=== PATIENT | female | born 1965 | race Caucasian/White ===

== ENCOUNTER 2017-01-22 17:28 | Emergency (ER) | payer MEDICARE, OTHER | END 2017-01-22 20:45 | disposition home or self-care (01) | LOC: ER1 17:28 | DX: R51 Headache (principal) | CPT/HCPCS: 96372; 99283; J1885 ==

== ENCOUNTER → 2021-10-24 | Outpatient (CLI) | payer MEDICARE, OTHER ==
[~2021-10-24] MED LIST: MACROBID 100 M100 M1 PO
== END ==
LOC: MAMO 13:06
DX: Z12.31 Encounter for screening mammogram for malignant neoplasm of breast (principal); I10 Essential (primary) hypertension; Z78.0 Asymptomatic menopausal state; Z79.83 Long term (current) use of bisphosphonates; Z90.710 Acquired absence of both cervix and uterus
CPT/HCPCS: 77063; 77067